=== PATIENT | female | born 1945 | race Caucasian/White ===

== ENCOUNTER 2019-01-05 14:59 | Inpatient (IN) | payer MEDICAID, MEDICARE ==
[~2019-01-05] VITALS: Ht 167.6 cm; Wt 101.2 kg
[2019-01-05 15:00] VITALS: BP_SYST 133
--- NOTE | 2019-01-05 15:00 | NUR ---
ER at bedside examining patient.
--- NOTE | 2019-01-05 15:00 | NUR ---
BROUGHT BACK TO BED #4 AND TRIAGED. REPORT GIVEN TO ARABELLA
[2019-01-05] MEDS ORDERED: NACL 0.9% 1,000 ML IV ONE (15:15)
--- NOTE | 2019-01-05 15:15 | NUR ---
patient BIB BLS transport from home with c/o back pain and inability to stand x 2 months that has increased over time. patient takes otc motrin for pain. patient was told to go to the emergency room by stage technician. no other complaint or injury at this time.
--- NOTE | 2019-01-05 15:30 | NUR ---
# 22 gauge angiocath placed to RFA. Use of asceptic technique. Opsite placed over site. Blood return noted. Blood for lab drawn from site. Flushed with 10 cc of normal saline. No evidence of infiltration noted. Patient tolerated well. Medicated per MD orders. IVF infusing with no s/s of infiltration at this time. Will cont to monitor# 18 FR In and Out catheter with use of sterile technique. Immediate return of 200 ml Clear/yellow urine noted. Urine sample collected and sent to lab. Pt tolerated procedure well. Patient unable to toilet self.
[2019-01-05 15:36] LABS: BASOPHILS # (AUTO) 0.1 K/uL (0.0-0.2); BASOPHILS % (AUTO) 0.9 % (0.0-2.0); EOSINOPHILS # (AUTO) 0.1 K/uL (0.0-0.4); EOSINOPHILS % (AUTO) 1.8 % (0.0-4.0); HEMATOCRIT 41.7 % (36-48); HEMOGLOBIN 13.8 g/dL (12.0-16.0); LYMPHOCYTES # (AUTO) 1.7 K/uL (1.0-5.5); LYMPHOCYTES % (AUTO) 22.7 % (20.5-51.5); MEAN CORPUSCULAR HEMOGLOBIN 30 pg (27-31); MEAN CORPUSCULAR HGB CONC 33 % (32-36); MEAN CORPUSCULAR VOLUME 90 fL (79.0-98.0); MONOCYTES # (AUTO) 0.8 K/uL (0.0-1.0); NEUTROPHILS # (AUTO) 4.8 K/uL (1.8-7.7); NEUTROPHILS % (AUTO) 63.6 % (40.0-70.0); PLATELET COUNT (AUTO) 261 K/uL (130-430); RED BLOOD CELL COUNT(AUTO) 4.65 MIL/uL (4.2-6.2); RED CELL DISTRIBUTION WIDTH 14.5 % (9.0-15.0); WHITE BLOOD COUNT (AUTO) 7.5 K/uL (4.8-10.8)
[2019-01-05 16:03] LABS: PROTHROMBIN TIME 9.9 SECS (9.5-12.5)
[2019-01-05 16:16] LABS: ANION GAP 7 (5-15); CALCIUM 9.2 mg/dL (8.4-11.0); CHLORIDE 105 mmol/L (98-107); CREATININE 0.67 mg/dL (0.55-1.30); GLUCOSE 105 mg/dL (70-99); POTASSIUM 4.1 mmol/L (3.5-5.1); SODIUM SERUM 138 mmol/L (136-145); UREA NITROGEN, BLOOD 14 mg/dL (8-21)
[2019-01-05 16:31] LABS: ALANINE AMINOTRANSFERASE 18 U/L (12-78); ALBUMIN 3.3 g/dL (3.4-4.8); ASPARTATE AMINOTRANSFERASE 23 U/L (10-37); TOTAL BILIRUBIN 0.4 mg/dL (0.0-1.0)
--- NOTE | 2019-01-05 16:46 | NUR ---
orders received from MD, waiting for bed assignment
[2019-01-05] MEDS ORDERED: NOR10 PO (16:54)
[2019-01-05] MEDS ORDERED: GABA-533 PO (16:54)
[2019-01-05] MEDS ORDERED: LEVO125T8 PO (16:54)
[2019-01-05] MEDS ORDERED: OMEP40CA33 PO (16:54)
[2019-01-05] MEDS ORDERED: HYDR-4274 PO (16:54)
[2019-01-05] MEDS ORDERED: MECL12.584 PO (16:54)
[2019-01-05] MEDS ORDERED: METO50TA7 PO (16:54)
--- NOTE | 2019-01-05 16:54 | NUR ---
Medication reconciliation completed with information provided by RX BOTTLE BROUGHT IN BY FAMILY. Any prior medication reconciliation on file was reviewed and corrected.
[2019-01-05] MEDS ORDERED: MORPHINE 2 MG/ML INJ. SYRINGE IVP ONE (17:00)
[2019-01-05] MEDS ORDERED: ONDANSETRON HCL 4 MG/2 ML VIAL IVP PRN (17:00)
[2019-01-05 17:09] LABS: BILIRUBIN,URINE NEGATIVE (NEGATIVE); BLOOD, URINE NEGATIVE (NEGATIVE); CLARITY/URINE CLEAR (CLEAR); COLOR,URINE YELLOW (YELLOW); GLUCOSE,URINE NEGATIVE (NEGATIVE); KETONES,URINE NEGATIVE (NEGATIVE); LEUKOCYTE ESTERASE ,URINE NEGATIVE (NEGATIVE); NITRITE, URINE NEGATIVE (NEGATIVE); PROTEIN URINE NEGATIVE (NEGATIVE)
--- NOTE | 2019-01-05 17:50 | NUR ---
ADMIT NOTE Received pt from ER to the floor with a diagnosis of BACK PAIN. Admission process initiated. patient oriented to pain management, safety and call light-teach back done.
--- NOTE | 2019-01-05 17:50 | NUR ---
Patient will be admitted to care of . Admitted to MED/SURG unit. Will go to room 103A. Summary report printed. Report will be given at bedside.
--- NOTE | 2019-01-05 18:11 | NUR ---
CONSULTATION PAGED REASON FOR CONSULTATION:NEUROPATHY WAS CONSULT CALLED?Y PERSON WHO WAS NOTIFIED:KIANA CONSULTING PHYSICIAN:LOUISE STONE NEWSPAPER ILLUSTRATOR SPECIALTY:NEURO NEWSPAPER ILLUSTRATOR PHONE NUMBER:[phone] ORDERING PHYSICIAN:HUGH DILL
--- NOTE | 2019-01-05 18:36 | NUR ---
GUTTER MOUTH CUTTER INITIAL NOTES RECEIVED PATIENT FROM ER/FROM HOME WITH C/O CHRONIC BACK PAIN DX OF NEUROPATHY ALERT X 4 , VERBAL AND BALE TO ANSWER QUESTION ,PATIENT IS NON AMBULATORY WHEELCHAIR BOUND ,FAMILY ASSISTING CARE AT HOME , PATIENT IV HL INTACT , WILL FOLLOW UP WITH CAT SCAN DONE IN ER .
[2019-01-05 18:47] VITALS: BP_SYST 151
[2019-01-05 18:58] VITALS: BP_SYST 151
--- NOTE | 2019-01-05 19:05 | NUR ---
THOMAS NAJERA FOR DIET PATIENT SAID SHE IS NOT HUNGRY ,THOMAS NAJERA FOR DIET , EXPLAINED TO THE PATIENT AND FAMILY PLAN OF CARE AND AWAITING PENDING RESULT CT OF PELVIS
--- NOTE | 2019-01-05 19:22 | NUR ---
OPENING NOTES Pt and endorsement received from day shift nurse. Pt is AAOx4, lying in bed. Pt on saline lock on right arm G22. Family at bedside. No complains of pain or discomfort at this time. No signs of acute distress or SOB noted. Encouraged to use call light when needed. Safety precautions in place with 3 side rails up, wheels locked, bed alarm on and in lowest level. Call light with pt. Will continue to monitor.
--- NOTE | 2019-01-05 19:55 | NUR ---
PAGED PAGING DR. VELA FOR ORDERS
--- NOTE | 2019-01-05 19:58 | NUR ---
SPOKE TO DR. VELA Spoke to Dr. Rodarte regarding pt's diet, he ordered regular diet. Read back order and will carry out.
[2019-01-05 20:15] VITALS: BP_SYST 139
[2019-01-06 00:12] VITALS: BP_SYST 111
--- NOTE | 2019-01-06 00:45 | NUR ---
ROUNDS Assisted pt to the bedside commode and back to bed, pt tolerated well. No complains of pain at this time. No signs of acute distress noted. Safety precautions in place and call light with pt. Will continue to monitor.
[2019-01-06] MEDS: MORPHINE 4 MG/ML INJ. SYRINGE IVP PRN ×2 (02:28→20:31)
--- NOTE | 2019-01-06 03:05 | NUR ---
ROUNDS Pt is resting in bed with both eyes closed, with visible chest rise and fall with non-labored breathing noted. Pt is easily arousable. No complains of pain at this time. No signs of acute distress noted. Safety precautions in place and call light with pt. Will continue to monitor.
[2019-01-06 06:10] LABS: BASOPHILS % (AUTO) 0.5 % (0.0-2.0); EOSINOPHILS # (AUTO) 0.1 K/uL (0.0-0.4); EOSINOPHILS % (AUTO) 2.3 % (0.0-4.0); HEMATOCRIT 36.3 % (36-48); HEMOGLOBIN 12.1 g/dL (12.0-16.0); LYMPHOCYTES # (AUTO) 1.2 K/uL (1.0-5.5); MEAN CORPUSCULAR HEMOGLOBIN 30 pg (27-31); MEAN CORPUSCULAR HGB CONC 33 % (32-36); MEAN CORPUSCULAR VOLUME 89 fL (79.0-98.0); MONOCYTES # (AUTO) 0.6 K/uL (0.0-1.0); MONOCYTES % (AUTO) 10.6 % (1.7-9.3); NEUTROPHILS # (AUTO) 3.6 K/uL (1.8-7.7); NEUTROPHILS % (AUTO) 64.6 % (40.0-70.0); PLATELET COUNT (AUTO) 224 K/uL (130-430); RED BLOOD CELL COUNT(AUTO) 4.07 MIL/uL (4.2-6.2); RED CELL DISTRIBUTION WIDTH 14.4 % (9.0-15.0); WHITE BLOOD COUNT (AUTO) 5.6 K/uL (4.8-10.8)
--- NOTE | 2019-01-06 06:25 | NUR ---
CLOSING NOTES Pt is resting in bed with both eyes closed, with visible chest rise and fall with non-labored breathing noted. Pt is easily arousable. No complains of pain or discomfort at this time. No signs of acute distress or SOB noted. All needs attended throughout the shift. Safety precautions maintained with 3 side rails up, wheels locked, bed alarm on and in lowest level. Call light with pt. Will endorse to day shift nurse.
--- NOTE | 2019-01-06 06:48 | NUR ---
Nutrition Update Bryan Scale 18 noted. Pt admitted for Back Pain, Neuropathy, Inability to walk Diet: Regular BMI: 36 kg/m2 RD to follow per nutrition care standards.
[2019-01-06 07:05] LABS: ANION GAP 8 (5-15); CALCIUM 8.4 mg/dL (8.4-11.0); CHLORIDE 108 mmol/L (98-107); CREATININE 0.61 mg/dL (0.55-1.30); GLUCOSE 91 mg/dL (70-99); POTASSIUM 3.8 mmol/L (3.5-5.1); SODIUM SERUM 144 mmol/L (136-145); THYROID STIMULATING HORMONE 0.57 uIu/mL (0.36-3.74); UREA NITROGEN, BLOOD 11 mg/dL (8-21)
[2019-01-06 08:00] VITALS: BP_SYST 138
--- NOTE | 2019-01-06 08:00 | NUR ---
RN INITIAL NOTES RECEIVED PATIENT IN BED WITH HL TO RT WRIST INTACT NO PAIN AT THIS TIME STATED IM NOT HUNGRY AT THIS TIME, OFFERED BREAKFAST AT BEDSIDE AND UNDERSTOOD , CONT ON PAIN MGT , AWAITING FOR THE MRI OF THE LUMBAR TODAY, ASSISTED WITH TRANSFER AND SAFETY ENSURED
[2019-01-06] MEDS: MORPHINE 2 MG/ML INJ. SYRINGE IVP PRN (10:20)
[2019-01-06 11:15] VITALS: BP_SYST 144
--- NOTE | 2019-01-06 12:00 | NUR ---
MRI PATIENT HAD MRI OF THE SPINE MORPHINE GIVEN PATIENT TOLERATES THE PROCEDURE
--- NOTE | 2019-01-06 13:53 | NUR ---
CONSULTATION PAGED REASON FOR CONSULTATION:BACK PAIN WAS CONSULT CALLED?Y PERSON WHO WAS NOTIFIED:ROSA CONSULTING PHYSICIAN:CHRISTOPHER TERAN (DINO LEAL MANAGER DISCOVERY) COMMERCIAL PEST CONTROL REPRESENTATIVE SPECIALTY:NEURO SURGEON COMMERCIAL PEST CONTROL REPRESENTATIVE PHONE NUMBER:[phone] ORDERING PHYSICIAN:HUGH DILL
--- NOTE | 2019-01-06 14:00 | NUR ---
PCP ROUNDS PATIENT SEEN BY DR VELA AND ORDERS NOTED , WITH NEURO SURGEON CONSULT SPOKE WITH ME, SAID SHE WILL ORDER SHE WILL COME AND SEE THE PATIENT , INFORMED PATIENT SHE WILL BE SEEN BY NEUROSURGEON PATIENT STATED SHE DONT WANT SURGERY.
[2019-01-06] MEDS ORDERED: HYDROcodone/ACETAMIN 5-325 MG TAB (NORCO/ VICODIN) PO PRN (14:15)
[2019-01-06] MEDS ORDERED: HYDROcodone/ACETAMIN 10-325 MG TAB PO PRN (14:15)
[2019-01-06 16:15] VITALS: BP_SYST 137
--- NOTE | 2019-01-06 19:06 | NUR ---
RN END NOTES PATIENT ENDORSED TO NEXT SHIFT , PATIENT SEEN BY DR WHITE AND SPOKE WITH THE PATIENT , MEDS PER DR VELA TO BE RECONCILLED , INFORMED CHARGE NURSE AND PATIENT AND FAMILY MADE AWRE , WILL START MEDS ONCE PHARMACY VERIFIED MEDS . CONT ON PAIN MGT
--- NOTE | 2019-01-06 19:38 | NUR ---
OPENING NOTES Received patient resting in bed on stomach with family at bedside. No acute respiratory distress observed. IV at R Wrist 22 g, patent, dressings c/d/i, running IVF. Call light on, bed alarm on, bed at lowest position. Will continue to monitor.
[2019-01-06 20:00] VITALS: BP_SYST 146
--- NOTE | 2019-01-06 20:15 | NUR ---
at bedside speaking to patient and explaining about the risks and benefits of surgery, need for possible stay at [facility] for rehab, gaining more muscle before procedure. Patient and family actively listened and will think about the next step. Will continue current treatment.
[2019-01-06] MEDS: GABAPENTIN 400 MG CAPSULE PO SCH (20:24)
[2019-01-06] MEDS: LEVOTHYROXINE SODIUM 0.125 MG TABLET PO SCH (20:24)
[2019-01-06] MEDS: amLODIPine BESYLATE 10 MG TABLET PO SCH (20:24)
[2019-01-06] MEDS: METOPROLOL SUCCINATE 50 MG TAB.SR.24H (TOPROL XL) PO SCH (20:24)
[2019-01-06] MEDS: PANTOPRAZOLE SODIUM 40 MG TAB PO SCH (20:24)
--- NOTE | 2019-01-06 22:05 | NUR ---
Patient is resting in bed, no signs of acute respiratory distress observed. Safety precautions in place. Will continue to monitor.
[2019-01-06 23:11] VITALS: BP_SYST 132
--- NOTE | 2019-01-07 00:12 | NUR ---
Patient is resting, no acute respiratory distress observed. Safety precautions in place. Will continue to monitor.
--- NOTE | 2019-01-07 00:12 | NUR ---
Patient is resting, no acute respiratory distress observed, room air. No complaints of pain at the moment. Safety precautions in place. Will continue to monitor. Addendum: 01/07/19 at 0318 by Shanika Agustin RN DUPLICATE
[2019-01-07] MEDS: GABAPENTIN 400 MG CAPSULE PO SCH ×3 (01:39→12:31)
--- NOTE | 2019-01-07 02:15 | NUR ---
Patient is resting, eyes closed, no acute respiratory distress observed. Safety precautions in place. Will continue to monitor.
--- NOTE | 2019-01-07 04:25 | NUR ---
Patient is asleep, eyes closed. No signs of acute respiratory distress observed. Call light within reach, bed alarm on, bed at lowest position. Will continue to monitor.
--- NOTE | 2019-01-07 06:42 | NUR ---
CLOSING NOTES Patient is resting in bed, lying on her stomache. No signs of acute respiratory distress observed. Patient does not have any pain at this time. IV site in tact, dressings c/d/i. All needs met throughout shift. Call light within reach, bed alarm on, bed at lowest position. Will endorse care to oncoming shift.
[2019-01-07 07:00] VITALS: BP_SYST 135
--- NOTE | 2019-01-07 08:00 | NUR ---
Received pt from PM shift. No distress noted. Assisted patient to commode, void x1. No BM at this time. Patient is A/Ox4, denies pain at this time. Patient is very unsteady when assisted patient to commode, reminded to always call when she needs assistance, to not get up on her own. Pt verbalizes understanding. Will continue to monitor
[2019-01-07] MEDS: LEVOTHYROXINE SODIUM 0.125 MG TABLET PO SCH (09:56)
[2019-01-07] MEDS: PANTOPRAZOLE SODIUM 40 MG TAB PO SCH (09:56)
[2019-01-07] MEDS: METOPROLOL SUCCINATE 50 MG TAB.SR.24H (TOPROL XL) PO SCH (09:56)
[2019-01-07] MEDS: amLODIPine BESYLATE 10 MG TABLET PO SCH (09:57)
[2019-01-07 12:00] VITALS: BP_SYST 142
[2019-01-07] MEDS: MORPHINE 2 MG/ML INJ. SYRINGE IVP PRN (15:09)
[2019-01-07 16:43] VITALS: BP_SYST 138
--- NOTE | 2019-01-07 17:39 | NUR ---
Pt discharged home, no distress noted. Both daughters at bedside, explained all discharge instructions, they verbalized understanding. Pt denies pain. All instructions given with packet, IV d/c. Going home with daughter in private auto
--- NOTE | 2019-01-07 17:47 | NUR ---
Patient d/c home with 2 daughters, IV d/c. Instructions verbalized by patient and daughters, packet given. Pt denies pain. She will follow up with surgeon next week regarding procedure.
== END 2019-01-07 17:15 | disposition home or self-care (01) | DRG 347 ==
LOC: SED 14:59 → UNDOADMIN 15:47 → SMU 15:47
PROVIDERS: ADMIT Internal Medicine; ATTEND Internal Medicine
DX: M48.061 Spinal stenosis, lumbar region without neurogenic claudication (principal); G62.9 Polyneuropathy, unspecified; E66.01 Morbid (severe) obesity due to excess calories; I10 Essential (primary) hypertension; E03.9 Hypothyroidism, unspecified; E78.00 Pure hypercholesterolemia, unspecified; G89.29 Other chronic pain; K21.9 Gastro-esophageal reflux disease without esophagitis; M43.10 Spondylolisthesis, site unspecified; G58.9 Mononeuropathy, unspecified; Z68.36 Body mass index [BMI] 36.0-36.9, adult; Z79.899 Other long term (current) drug therapy; Z74.01 Bed confinement status
CPT/HCPCS: 36415; 71045; 72148; 80048; 80053; 81003; 83605; 84443-TC; 84484; 85025; 85610-TC; 85730-TC; 87040-TC; 87086; 93005; 96361; 96374; 97110-GP; 97530-GP; 99285; J2270; J7030

== ENCOUNTER 2021-11-13 15:37 | Emergency (ER) | payer MEDICARE, MEDICAID ==
[~2021-11-13] VITALS: Ht 167.6 cm; Wt 90.7 kg
[2021-11-13 15:37] VITALS: BP_SYST 112
[~2021-11-13 15:37] MED LIST: GABA-533 PO; HYDR-4274 PO; LEVO125T8 PO; MECL-225 PO; METO50TA7 PO; NOR10 PO; OMEP40CA20 PO
--- NOTE | 2021-11-13 15:45 | NUR ---
Patient triaged and placed in waiting room. VSS and patient appears in no acute distress at this time. Accompanied by SELF, awaiting available bed, and MD notified of need for MSE.
--- NOTE | 2021-11-13 16:01 | NUR ---
UNABLE TO LOCATE PT IN WAITING ROOM.
--- NOTE | 2021-11-13 16:20 | NUR ---
PT NOT IN WAITING ROOM, FRONT OF HOSPITAL CHECKED. UNABLE TO LOCATE PT.
== END 2021-11-13 16:30 | disposition left against medical advice (07) ==
LOC: SED 15:37
DX: R20.2 Paresthesia of skin (principal); R53.1 Weakness; Z53.21 Procedure and treatment not carried out due to patient leaving prior to being seen by health care provider

== ENCOUNTER 2021-11-16 19:52 | Inpatient (IN) | payer MEDICAID, MEDICARE ==
[~2021-11-16] VITALS: Ht 167.6 cm; Wt 102.1 kg
[2021-11-16 20:15] VITALS: BP_SYST 127
[2021-11-16] MEDS ORDERED: NACL 0.9% 1,000 ML IV ONE (23:15)
[2021-11-17 00:13] LABS: HEMOGLOBIN 12.3 g/dL (12.0-16.0); MEAN CORPUSCULAR HEMOGLOBIN 31 pg (27-31); PLATELET COUNT (AUTO) 256 K/uL (130-430)
[2021-11-17 00:36] LABS: BASOPHILS % (AUTO) 0.6 % (0.0-2.0); EOSINOPHILS # (AUTO) 0.4 K/uL (0.0-0.4); EOSINOPHILS % (AUTO) 5.6 % (0.0-4.0); HEMATOCRIT 35.9 % (36-48); LYMPHOCYTES # (AUTO) 1.5 K/uL (1.0-5.5); LYMPHOCYTES % (AUTO) 23.5 % (20.5-51.5); MEAN CORPUSCULAR HGB CONC 34 % (32-36); MEAN CORPUSCULAR VOLUME 91 fL (79.0-98.0); MONOCYTES # (AUTO) 0.9 K/uL (0.0-1.0); MONOCYTES % (AUTO) 13.3 % (1.7-9.3); NEUTROPHILS # (AUTO) 3.7 K/uL (1.8-7.7); RED BLOOD CELL COUNT(AUTO) 3.97 MIL/uL (4.2-6.2); RED CELL DISTRIBUTION WIDTH 13.7 % (9.0-15.0); WHITE BLOOD COUNT (AUTO) 6.4 K/uL (4.8-10.8)
[2021-11-17 00:41] LABS: ANION GAP 8 (5-15); CALCIUM 9.2 mg/dL (8.4-11.0); CHLORIDE 102 mmol/L (98-107); CREATININE 0.85 mg/dL (0.55-1.30); GLUCOSE 104 mg/dL (70-99); POTASSIUM 3.2 mmol/L (3.5-5.1); SODIUM SERUM 141 mmol/L (136-145); UREA NITROGEN, BLOOD 23 mg/dL (8-21)
[2021-11-17 00:56] LABS: ALANINE AMINOTRANSFERASE 16 U/L (12-78); ASPARTATE AMINOTRANSFERASE 27 U/L (10-37); TOTAL BILIRUBIN 0.6 mg/dL (0.0-1.0)
[2021-11-17] MEDS ORDERED: POTASSIUM CHLORIDE 20 MEQ TAB.PRT.SR PO ONE ×2 (02:15→10:00)
[2021-11-17] MEDS ORDERED: ASPIRIN 81 MG TAB.CHEW PO ONE (09:00)
[2021-11-17] MEDS ORDERED: METOPROLOL SUCCINATE 50 MG TAB.SR.24H (TOPROL XL) PO ONE (11:00)
[2021-11-17 16:00] VITALS: BP_SYST 133
[2021-11-17 16:11] VITALS: BP_SYST 133
[2021-11-17] MEDS ORDERED: MORPHINE 2 MG/ML INJ. SYRINGE IVP PRN (18:15)
[2021-11-17] MEDS ORDERED: ONDANSETRON HCL 4 MG/2 ML VIAL IVP PRN (18:15)
[2021-11-17] MEDS ORDERED: NALOXONE HCL 0.4 MG/ML AMP (NARCAN) IVP PRN ×2 (18:15)
[2021-11-17 20:10] VITALS: BP_SYST 119
[2021-11-17] MEDS: GABAPENTIN 100 MG CAPSULE PO SCH (20:45)
[2021-11-17] MEDS: HYDROcodone/ACETAMIN 5-325 MG TAB (NORCO/ VICODIN) PO PRN (20:46)
[2021-11-18] VITALS: BP_SYST 128
[2021-11-18] MEDS: HYDROcodone/ACETAMIN 5-325 MG TAB (NORCO/ VICODIN) PO PRN ×3 (03:29→20:37)
[2021-11-18 06:58] LABS: BASOPHILS % (AUTO) 0.9 % (0.0-2.0); EOSINOPHILS # (AUTO) 0.2 K/uL (0.0-0.4); EOSINOPHILS % (AUTO) 6.1 % (0.0-4.0); HEMATOCRIT 30.5 % (36-48); HEMOGLOBIN 10.5 g/dL (12.0-16.0); LYMPHOCYTES # (AUTO) 0.5 K/uL (1.0-5.5); LYMPHOCYTES % (AUTO) 12.8 % (20.5-51.5); MEAN CORPUSCULAR HEMOGLOBIN 31 pg (27-31); MEAN CORPUSCULAR HGB CONC 34 % (32-36); MEAN CORPUSCULAR VOLUME 91 fL (79.0-98.0); MONOCYTES # (AUTO) 0.5 K/uL (0.0-1.0); MONOCYTES % (AUTO) 13.7 % (1.7-9.3); NEUTROPHILS # (AUTO) 2.5 K/uL (1.8-7.7); NEUTROPHILS % (AUTO) 66.5 % (40.0-70.0); PLATELET COUNT (AUTO) 221 K/uL (130-430); RED BLOOD CELL COUNT(AUTO) 3.36 MIL/uL (4.2-6.2); RED CELL DISTRIBUTION WIDTH 13.3 % (9.0-15.0); WHITE BLOOD COUNT (AUTO) 3.8 K/uL (4.8-10.8)
[2021-11-18 07:50] VITALS: BP_SYST 128
[2021-11-18 07:57] LABS: ALANINE AMINOTRANSFERASE 15 U/L (12-78); ALBUMIN 2.3 g/dL (3.4-4.8); ANION GAP 8 (5-15); ASPARTATE AMINOTRANSFERASE 24 U/L (10-37); CALCIUM 8.2 mg/dL (8.4-11.0); CHLORIDE 107 mmol/L (98-107); CREATININE 0.51 mg/dL (0.55-1.30); GLUCOSE 99 mg/dL (70-99); POTASSIUM 3.1 mmol/L (3.5-5.1); SODIUM SERUM 144 mmol/L (136-145); THYROID STIMULATING HORMONE 2.12 uIu/mL (0.36-3.74); TOTAL BILIRUBIN 0.7 mg/dL (0.0-1.0); UREA NITROGEN, BLOOD 15 mg/dL (8-21)
[2021-11-18] MEDS: GABAPENTIN 100 MG CAPSULE PO SCH ×3 (08:36→20:39)
[2021-11-18] MEDS: LEVOTHYROXINE SODIUM 0.125 MG TABLET PO SCH (08:37)
[2021-11-18] MEDS: METOPROLOL SUCCINATE 50 MG TAB.SR.24H (TOPROL XL) PO SCH (08:37)
[2021-11-18] MEDS: PANTOPRAZOLE SODIUM 40 MG TAB PO SCH (08:37)
[2021-11-18 08:47] LABS: CHOLESTEROL 121 mg/dL (<200); HDL CHOLESTEROL 26 mg/dL (>55); LDL CHOLESTEROL 75 mg/dL (<100); TRIGLYCERIDES 83 mg/dL (30-150)
[2021-11-18 12:00] VITALS: BP_SYST 132
[2021-11-18 16:00] VITALS: BP_SYST 150
[2021-11-18 20:00] VITALS: BP_SYST 138
[2021-11-18] MEDS: MORPHINE 2 MG/ML INJ. SYRINGE IVP PRN (23:05)
[2021-11-19 01:31] VITALS: BP_SYST 138
[2021-11-19 07:40] VITALS: BP_SYST 138
[2021-11-19] MEDS: METOPROLOL SUCCINATE 50 MG TAB.SR.24H (TOPROL XL) PO SCH (08:59)
[2021-11-19] MEDS: LEVOTHYROXINE SODIUM 0.125 MG TABLET PO SCH (08:59)
[2021-11-19] MEDS: GABAPENTIN 100 MG CAPSULE PO SCH ×2 (09:00→09:05)
[2021-11-19] MEDS: PANTOPRAZOLE SODIUM 40 MG TAB PO SCH (09:05)
[2021-11-19] MEDS ORDERED: GABAPENTIN 100 MG CAPSULE ONE (09:08)
[2021-11-19] MEDS: HYDROcodone/ACETAMIN 5-325 MG TAB (NORCO/ VICODIN) PO PRN ×3 (12:29→13:49)
[2021-11-19 12:34] VITALS: BP_SYST 138
[2021-11-19 16:24] VITALS: BP_SYST 140
[2021-11-19 20:00] VITALS: BP_SYST 133
[2021-11-20] VITALS: BP_SYST 130
[2021-11-20] MEDS: GABAPENTIN 100 MG CAPSULE PO SCH ×3 (00:08→20:19)
[2021-11-20] MEDS: MORPHINE 2 MG/ML INJ. SYRINGE IVP PRN (00:09)
[2021-11-20] MEDS: METOPROLOL SUCCINATE 50 MG TAB.SR.24H (TOPROL XL) PO SCH (09:00)
[2021-11-20] MEDS: PANTOPRAZOLE SODIUM 40 MG TAB PO SCH (09:17)
[2021-11-20] MEDS: LEVOTHYROXINE SODIUM 0.125 MG TABLET PO SCH (09:17)
[2021-11-20] MEDS: HYDROcodone/ACETAMIN 5-325 MG TAB (NORCO/ VICODIN) PO PRN ×2 (09:36→16:30)
[2021-11-20 11:44] VITALS: BP_SYST 132
[2021-11-20 16:50] VITALS: BP_SYST 136
[2021-11-20 20:00] VITALS: BP_SYST 143
[2021-11-21 01:00] VITALS: BP_SYST 122
[2021-11-21] MEDS: HYDROcodone/ACETAMIN 5-325 MG TAB (NORCO/ VICODIN) PO PRN ×2 (02:50→22:03)
[2021-11-21 04:00] VITALS: BP_SYST 130
[2021-11-21 08:00] VITALS: BP_SYST 149
[2021-11-21] MEDS: GABAPENTIN 100 MG CAPSULE PO SCH ×2 (08:59→22:03)
[2021-11-21] MEDS: LEVOTHYROXINE SODIUM 0.125 MG TABLET PO SCH (08:59)
[2021-11-21] MEDS: PANTOPRAZOLE SODIUM 40 MG TAB PO SCH (09:00)
[2021-11-21] MEDS: METOPROLOL SUCCINATE 50 MG TAB.SR.24H (TOPROL XL) PO SCH (09:00)
[2021-11-21 10:45] LABS: ANION GAP 7 (5-15); CALCIUM 8.2 mg/dL (8.4-11.0); CHLORIDE 106 mmol/L (98-107); CREATININE 0.62 mg/dL (0.55-1.30); GLUCOSE 102 mg/dL (70-99); POTASSIUM 3.1 mmol/L (3.5-5.1); SODIUM SERUM 143 mmol/L (136-145); UREA NITROGEN, BLOOD 15 mg/dL (8-21)
[2021-11-21 12:00] VITALS: BP_SYST 142
[2021-11-21] MEDS ORDERED: POTASSIUM CHLORIDE 20 MEQ/PKT PACKET PO ONE (12:30)
[2021-11-21] MEDS: MORPHINE 2 MG/ML INJ. SYRINGE IVP PRN (15:47)
[2021-11-21 16:00] VITALS: BP_SYST 112
[2021-11-21 20:00] VITALS: BP_SYST 128
[2021-11-22 00:13] VITALS: BP_SYST 131
[2021-11-22 04:05] VITALS: BP_SYST 140
[2021-11-22] MEDS: HYDROcodone/ACETAMIN 5-325 MG TAB (NORCO/ VICODIN) PO PRN (04:05)
[2021-11-22 08:37] LABS: ALANINE AMINOTRANSFERASE 41 U/L (12-78); ALBUMIN 2.5 g/dL (3.4-4.8); ANION GAP 8 (5-15); ASPARTATE AMINOTRANSFERASE 40 U/L (10-37); CALCIUM 8.9 mg/dL (8.4-11.0); CHLORIDE 103 mmol/L (98-107); CREATININE 0.61 mg/dL (0.55-1.30); GLUCOSE 117 mg/dL (70-99); POTASSIUM 3.6 mmol/L (3.5-5.1); SODIUM SERUM 138 mmol/L (136-145); TOTAL BILIRUBIN 0.7 mg/dL (0.0-1.0); UREA NITROGEN, BLOOD 14 mg/dL (8-21)
[2021-11-22] MEDS: LEVOTHYROXINE SODIUM 0.125 MG TABLET PO SCH (10:08)
[2021-11-22] MEDS: PANTOPRAZOLE SODIUM 40 MG TAB PO SCH (10:09)
[2021-11-22] MEDS: METOPROLOL SUCCINATE 50 MG TAB.SR.24H (TOPROL XL) PO SCH (10:09)
[2021-11-22] MEDS: GABAPENTIN 100 MG CAPSULE PO SCH (10:09)
[2021-11-22 12:47] VITALS: BP_SYST 136
[2021-11-22 13:49] VITALS: BP_SYST 136
[2021-11-22 15:20] LABS: BASOPHILS # (AUTO) 0.1 K/uL (0.0-0.2); BASOPHILS % (AUTO) 1.3 % (0.0-2.0); EOSINOPHILS # (AUTO) 0.3 K/uL (0.0-0.4); EOSINOPHILS % (AUTO) 4.1 % (0.0-4.0); HEMATOCRIT 33.6 % (36-48); HEMOGLOBIN 11.2 g/dL (12.0-16.0); LYMPHOCYTES # (AUTO) 0.8 K/uL (1.0-5.5); LYMPHOCYTES % (AUTO) 12.2 % (20.5-51.5); MEAN CORPUSCULAR HEMOGLOBIN 31 pg (27-31); MEAN CORPUSCULAR HGB CONC 33 % (32-36); MEAN CORPUSCULAR VOLUME 93 fL (79.0-98.0); MONOCYTES # (AUTO) 0.7 K/uL (0.0-1.0); MONOCYTES % (AUTO) 10.4 % (1.7-9.3); NEUTROPHILS # (AUTO) 4.5 K/uL (1.8-7.7); PLATELET COUNT (AUTO) 218 K/uL (130-430); RED BLOOD CELL COUNT(AUTO) 3.63 MIL/uL (4.2-6.2); RED CELL DISTRIBUTION WIDTH 13.9 % (9.0-15.0); WHITE BLOOD COUNT (AUTO) 6.2 K/uL (4.8-10.8)
== END 2021-11-22 16:48 | disposition home health service (06) | DRG 347 ==
LOC: SED 19:52 → STU 11-17 06:08 → SMU 11-21 14:00
PROVIDERS: ADMIT Internal Medicine; ATTEND Internal Medicine
DX: M48.00 Spinal stenosis, site unspecified (principal); E44.0 Moderate protein-calorie malnutrition; G82.20 Paraplegia, unspecified; E87.6 Hypokalemia; R53.81 Other malaise; I10 Essential (primary) hypertension; E66.01 Morbid (severe) obesity due to excess calories; G89.4 Chronic pain syndrome; E78.00 Pure hypercholesterolemia, unspecified; E03.9 Hypothyroidism, unspecified; Z20.822 Contact with and (suspected) exposure to COVID-19; M19.019 Primary osteoarthritis, unspecified shoulder; M21.371 Foot drop, right foot; M21.372 Foot drop, left foot; Z74.01 Bed confinement status; Z87.891 Personal history of nicotine dependence; Z68.36 Body mass index [BMI] 36.0-36.9, adult; Z79.891 Long term (current) use of opiate analgesic; Z79.899 Other long term (current) drug therapy
CPT/HCPCS: 36415; 70450-TC; 70551; 71045; 76376; 80048; 80053; 80061; 83735; 84443; 84484; 85025; 93005; 93306; 97110-GP; 97530-GP; 99285; G0378; J2270